=== PATIENT | female | born 1940 | race Caucasian/White ===

== ENCOUNTER → 2025-01-24 10:42 | Outpatient (REF) | payer OTHER, SELFPAY | LOC: RAD 10:42 | PROVIDERS: ATTENDING PHYSICIAN Internal Medicine Rheumatology; FAMILY PHYSICIAN Family Medicine | DX: G56.03 Carpal tunnel syndrome, bilateral upper limbs (principal); M15.9 Polyosteoarthritis, unspecified | CPT/HCPCS: 73110; 73130 ==